=== PATIENT | female | born 1980 | race Caucasian/White ===

== ENCOUNTER 2017-04-17 06:46 | Inpatient (IN) | payer BC ==
[2017-04-17] MEDS ORDERED: Lidocaine 1% (PF) 30 ML VIAL SC PRN (07:28)
[2017-04-17] MEDS ORDERED: Diphenoxylate HCl/Atropine Tablet PO PRN (07:28)
[2017-04-17] MEDS ORDERED: LR / Pitocin 40 units/1000 ml 1,000 ML IV PRN (07:28)
[2017-04-17] MEDS ORDERED: HYDROcodone/Acetaminophen 5/325 mg Tablet PO PRN ×4 (07:28→14:20)
[2017-04-17] MEDS ORDERED: LR 500 ML/Oxytocin 10 units 500 ML IV SCH (07:28)
[2017-04-17] MEDS ORDERED: Carboprost 250 MCG/ML AMP IM PRN (07:28)
[2017-04-17] MEDS ORDERED: Promethazine HCl 25 MG/ML VIAL IM PRN ×2 (07:28→12:02)
[2017-04-17] MEDS ORDERED: Ondansetron HCl/PF 4 MG/2 ML Vial IVP PRN ×3 (07:28→14:20)
[2017-04-17] MEDS: Lactated Ringer's 1,000 ML IV SCH ×4 (07:40→15:53)
[2017-04-17 08:00] LABS: Hematocrit 31.7 % (36.0-47.0); Mean Platelet Volume 7.6 fL (7.4-10.4); Red Blood Cell (RBC) Count 3.52 mill/uL (4.20-5.40); White Blood Cell (WBC) Count 11.3 thou/uL (4.8-10.8)
[2017-04-17 08:06] VITALS: BMI 32.8
[2017-04-17] MEDS ORDERED: Fentanyl 4 mcg/Marc 0.1% Cadd 100 ML ONE (11:11)
[2017-04-17] MEDS ORDERED: Acetaminophen 325 MG TAB PO PRN (12:02)
[2017-04-17] MEDS ORDERED: Lactated Ringer's 500 ML IV PRN (12:02)
[2017-04-17] MEDS ORDERED: diphenhydrAMINE HCl 50 MG/ML 1 ML VIAL IVP PRN (12:02)
[2017-04-17] MEDS ORDERED: Eucerin (Mineral Oil/Petrolatum,White) 30 gm Jar TOP PRN (12:02)
[2017-04-17] MEDS ORDERED: ePHEDrine/0.9% NaCl/PF SYRINGE 50 mg/10 ml SLOW IVP PRN (12:02)
[2017-04-17] MEDS ORDERED: Naloxone HCl 0.4 mg/ml Vial IVP PRN ×2 (12:02)
[2017-04-17] MEDS ORDERED: Communication Order-Pharmacy FS SCH (12:15)
[2017-04-17] MEDS ORDERED: Fentanyl 4mcg/Marcaine 0.1% Cassette 100 ML EPIDURAL SCH (12:15)
[2017-04-17] MEDS ORDERED: Measles/Mumps/Rubella 10 MCG/0.5 ML VIAL SC ONE (14:20)
[2017-04-17] MEDS ORDERED: Zolpidem Tartrate 5 MG TAB PO PRN (14:20)
[2017-04-17] MEDS ORDERED: Bisacodyl 10 MG SUPP PR PRN (14:20)
[2017-04-17] MEDS ORDERED: Milk Of Magnesia 30 ML UDCUP PO PRN (14:20)
[2017-04-17] MEDS ORDERED: diphenhydrAMINE HCl 25 MG CAP PO PRN (14:20)
[2017-04-17] MEDS ORDERED: Preparation H Ointment 28 GM TUBE PR PRN (14:20)
[2017-04-17] MEDS ORDERED: Ibuprofen 800 MG TAB PO SCH (14:20)
[2017-04-17] MEDS ORDERED: Varicella virus, LIVE 0.5 ML VIAL SC ONE (14:20)
[2017-04-17] MEDS ORDERED: Adacel (T-DAP) 0.5 ML VIAL IM ONE (14:20)
[2017-04-17] MEDS ORDERED: Benzocaine/Menthol 20-0.5% 60 ML CAN TOP PRN (14:20)
[2017-04-17] MEDS ORDERED: LR / Pitocin 40 units/1000 ml 1,000 ML IV SCH (14:20)
[2017-04-17] MEDS: Ibuprofen 800 MG TAB PO SCH (17:19)
[2017-04-17] MEDS: Ferrous Sulfate 325 MG TAB PO SCH (17:19)
[2017-04-17] MEDS: Docusate (Surfak) 240 MG CAP PO SCH (20:16)
[2017-04-17] MEDS ORDERED: FLU VACC QS2017-18 36 mo. & older 0.5 ML SYRINGE IM ONE (21:00)
[2017-04-18] MEDS: Ibuprofen 800 MG TAB PO SCH ×3 (00:23→15:06)
[2017-04-18] MEDS: Ferrous Sulfate 325 MG TAB PO SCH (08:35)
[2017-04-18] MEDS: Docusate (Surfak) 240 MG CAP PO SCH (08:36)
[2017-04-18] MEDS ORDERED: Prenatal Vitamin 1 TAB PO SCH (09:00)
--- NOTE | 2017-04-18 12:34 | PDOC.PP ---
Post Progress Note Post Day #: 1 PO intake tolerated: yes Flatus: yes Ambulation: yes Vital Signs (12 hours) Temp Pulse Resp BP 04/18/17 08:54 98.3 F 65 18 113/56 L 04/18/17 08:00 98.3 F 65 18 04/18/17 04:00 98.4 F 65 20 102/52 L Weight Weight 210 lb - Physical Examination General: NAD Cardiovascular: no m/r/g, RRR Respiratory: clear to ausculation bilateral Abdominal: + bowel sounds, lochia, no distention, appropriately TTP Extremities: negative homans (B) Skin: no rash Neurological: no gross focal deficits Psychiatric: normal affect Result Diagrams: 04/17/17 07:40 Additional Labs: Post Labs Hep Bs Antigen Non-Reactive S/CO (NonReactive) 04/17/17 07:40 (1) First stage of labor Code(s): FCC6528 - Status: Acute - Assessment/Plan doing well desires ppd 1 dc
[2017-04-18 12:53] VITALS: BP 132/71; TEMP 98.6
[2017-04-18] MEDS ORDERED: Bupivacaine 0.25% HCL 30 ML VIAL ONE (14:44)
== END 2017-04-18 17:10 | disposition home or self-care (01) | DRG 775 ==
LOC: L&D 06:46 → 3SW 14:59 → EDSTATUS 04-18 14:30
PROVIDERS: ADMIT Obstetrics & Gynecology; ATTEND Obstetrics & Gynecology
PROC: 10E0XZZ Delivery of Products of Conception, External Approach (ICD-10-PCS; principal; 2017-04-17)
DX: O70.0 First degree perineal laceration during delivery (principal); E03.9 Hypothyroidism, unspecified; Z37.0 Single live birth; Z3A.39 39 weeks gestation of pregnancy; O99.284 Endocrine, nutritional and metabolic diseases complicating childbirth
CPT/HCPCS: 85027; 86780; 87340; J7120; S0020

== ENCOUNTER 2018-10-20 05:30 | Inpatient (IN) | payer OTHER ==
--- NOTE | 2018-10-19 15:55 | PDOC.LDHP ---
Labor and Delivery H&P Chief complaint: scheduled induction HPI: a1 with a2 dm on glyburide for iol at 38 wk per consensus reccomendations. no evidence of macrosomia in excess of prior proven pelvis with lga Current gestational age (weeks): 38 Due date: 10/30/18 Grav: 4 Para: 2 OB History Details: see hpi Current complications: gestational diabetes Abnormal US findings: No Current medications: pre-rose marie vitamins, other (glyvuride) Previous surgical history: other Allergies/Adverse Reactions: Allergies Allergy/AdvReac Type Severity Reaction Status Date / Time No Known Allergies Allergy Verified 04/17/17 08:38 Social history: none - Physical Exam Vital signs reviewed and normal: yes General: NAD, resting Heart: RRR Lungs: nonlabored breathing Abdomen: gravid Extremeties: no edema FHT: category 1 [place] contractions every: irreg - Vaginal Exam cm dilated: 2 (efw 8.5-9.5#) Effacement: 50% Station: -2 - OB Labs Blood type: O RH: positive Antibody Screen: negative HIV: negative RPR: negative HEPSAg: negative 1 hour GCT: positive GBS: negative Urine drug screen: not done Rubella: immune - Assessment L&D Assessment: medically indicated induction 38 wk gdm on meds with hx lga/macrosomia with no shoulder dystocia - Plan Plan: admit to L&D, labor augmentation if indicated, anesthesia consult for pain management
[2018-10-20 07:32] VITALS: BMI 34.2
[2018-10-20] MEDS ORDERED: Butorphanol Tartrate 1 MG/ML VIAL SLOW IVP PRN (07:34)
[2018-10-20] MEDS ORDERED: HYDROcodone/Acetaminophen 5/325 mg Tablet PO PRN ×4 (07:34→18:14)
[2018-10-20] MEDS ORDERED: Lidocaine 1% (PF) 30 ML VIAL SC PRN (07:34)
[2018-10-20] MEDS ORDERED: Promethazine HCl 25 MG/ML VIAL IM PRN ×3 (07:34→18:14)
[2018-10-20] MEDS ORDERED: NS w/ Oxytocin 10 units 500 ML IV SCH (07:34)
[2018-10-20] MEDS ORDERED: Lactated Ringer's 1,000 ML IV SCH (07:34)
[2018-10-20] MEDS ORDERED: NS / Oxytocin 40 units/1000ml 1,000 ML IV PRN (07:34)
[2018-10-20] MEDS ORDERED: Ibuprofen 800 MG TAB PO PRN (07:34)
[2018-10-20] MEDS ORDERED: Ondansetron PF 4 MG/2 ML Vial IVP PRN ×3 (07:34→18:14)
[2018-10-20 08:06] LABS: Hemoglobin 11.1 g/dL (12.0-16.0); Mean Corpuscular HGB CONC 34.2 g/dL (32.0-36.0); Mean Corpuscular Hemoglobin 30.1 pg (27.0-31.0); Mean Platelet Volume 8.3 fL (7.4-10.4); Platelet Count 182 thou/uL (130-400); RBC Distribution Width 11.8 % (11.5-14.5); White Blood Cell (WBC) Count 9.2 thou/uL (4.8-10.8)
[2018-10-20 08:33] LABS: HBSAg Index 0.26 S/CO (0-0.99); Hep B Surf Ag Non-Reactive S/CO (NonReactive)
[2018-10-20] MEDS: Lactated Ringer's 1,000 ML IV SCH ×2 (08:41→12:51)
[2018-10-20 09:05] LABS: Syphilis Antibody Nonreactive (Nonreactive); Syphilis Antibody Index 0.04 S/CO (<1.00 Non-Reactive)
[2018-10-20] MEDS ORDERED: Fentanyl 4 mcg/Bup 0.1% Cadd 100 ML ONE (12:25)
[2018-10-20] MEDS ORDERED: Eucerin (Mineral Oil/Petrolatum,White) 30 gm Jar TOP PRN (12:52)
[2018-10-20] MEDS ORDERED: diphenhydrAMINE 50 MG/ML VIAL IVP PRN (12:52)
[2018-10-20] MEDS ORDERED: Acetaminophen 325 MG TAB PO PRN (12:52)
[2018-10-20] MEDS ORDERED: Lactated Ringer's 500 ML IV PRN (12:52)
[2018-10-20] MEDS ORDERED: Naloxone HCl 0.4 mg/ml Vial IVP PRN ×2 (12:52)
[2018-10-20] MEDS ORDERED: ePHEDrine/0.9% NaCl/PF SYRINGE 50 mg/10 ml SLOW IVP PRN (12:52)
[2018-10-20] MEDS ORDERED: Fentanyl 4 mcg/Bupivacaine 0.1% Cassette 100 ML EPIDURAL SCH (13:00)
[2018-10-20] MEDS ORDERED: Communication Order-Pharmacy FS SCH (13:00)
--- NOTE | 2018-10-20 15:45 | PDOC.OPDEL ---
OB Operative/Delivery Note Delivery Dr/Surgeon: adrian Pre-Delivery Diagnosis: medically indicated induction Procedure/Post Delivery Dx: spontaneous vaginal delivery Weeks gestation: 38 Anesthesia: epidural - Findings A Weight: 0 oz (pend) - 1 min: 9 - 5 min: 9 - Additional Findings/Plan Placenta delivered: spontaneous Repaired Obstetrical Laceration: 1st degree Estimated blood loss: 256 qbl Post delivery plan: routine recovery
[2018-10-20] MEDS ORDERED: Bupivacaine 0.25% HCL 30 ML VIAL ONE (17:32)
[2018-10-20] MEDS ORDERED: NS / Oxytocin 40 units/1000ml 1,000 ML IV SCH (18:14)
[2018-10-20] MEDS ORDERED: Zolpidem Tartrate 5 MG TAB PO PRN (18:14)
[2018-10-20] MEDS ORDERED: Lanolin Ointment 7 GM TUBE TOP PRN (18:14)
[2018-10-20] MEDS ORDERED: diphenhydrAMINE 25 MG CAP PO PRN (18:14)
[2018-10-20] MEDS ORDERED: Benzocaine-Menthol 82.5 ML CAN TOP PRN (18:14)
[2018-10-20] MEDS ORDERED: Bisacodyl 10 MG SUPP PR PRN (18:14)
[2018-10-20] MEDS ORDERED: Preparation H Ointment 28 GM TUBE PR PRN (18:14)
[2018-10-20] MEDS ORDERED: Milk Of Magnesia 30 ML UDCUP PO PRN (18:14)
[2018-10-20] MEDS ORDERED: Adacel (T-DAP) 0.5 ML SYRINGE IM ONE (21:00)
[2018-10-20] MEDS: Docusate Calcium (SURFAK) 240 MG CAP PO SCH (21:03)
[2018-10-20] MEDS: Ibuprofen 800 MG TAB PO SCH (21:03)
[2018-10-21] MEDS: Ibuprofen 800 MG TAB PO SCH ×3 (05:36→21:35)
[2018-10-21] MEDS: Prenatal Vitamin 1 TAB PO SCH (08:34)
[2018-10-21] MEDS: Docusate Calcium (SURFAK) 240 MG CAP PO SCH ×2 (08:34→21:35)
--- NOTE | 2018-10-21 12:29 | PDOC.PP ---
Post Progress Note Post Day #: 1 Subjective: Pt evaluated PPD1. PT doing well. She is up and ambulating. Urinating without difficulty. Minimal lochia. Baby is breast feeding and no problems with latch. PO intake tolerated: yes Ambulation: yes Vital Signs (12 hours) Temp Pulse Resp BP Pulse Ox 10/21/18 11:12 98.0 F 76 20 123/67 10/21/18 08:06 97.6 F 66 20 109/75 99 10/21/18 05:20 97.7 F 66 16 110/67 Weight Weight 212 lb - Physical Examination General: NAD Respiratory: non-labored breathing Abdominal: lochia, no distention, appropriately TTP Fundus firm & at: below the umbilicus Extremities: negative homans (B) Neurological: no gross focal deficits Psychiatric: normal affect Result Diagrams: 10/20/18 07:49 Additional Labs: Post Labs Blood Type O POSITIVE 10/20/18 07:49 Hep Bs Antigen Non-Reactive S/CO (NonReactive) 10/20/18 07:49 (1) (spontaneous vaginal delivery) Code(s): O80 - ENCOUNTER FOR FULL-TERM UNCOMPLICATED DELIVERY Status: Acute - Assessment/Plan PT s/p . PT doing well on PPD1 We will plan to d/c tomorrow am.
[2018-10-22] MEDS: Ibuprofen 800 MG TAB PO SCH (05:58)
[2018-10-22 07:52] VITALS: BP 117/69; TEMP 98
--- NOTE | 2018-10-22 08:03 | PDOC.PP ---
Post Progress Note Post Day #: 2 Subjective: Pt evaluated PPD2. PT doind well. She is breast feeding at this time. 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 No gushing or dizziness. She is up and ambulatory with mild soreness. She is eating and drinking well. Urinating without difficulty. No leg swelling or pain. PT is ready for discharge. PO intake tolerated: yes Flatus: yes Ambulation: yes Vital Signs (12 hours) Temp Pulse Resp BP Pulse Ox 10/22/18 07:52 98.0 F 76 20 117/69 97 10/21/18 20:12 97.9 F 75 18 117/73 99 Weight Weight 212 lb - Physical Examination General: NAD Respiratory: clear to auscultation bilaterally Abdominal: no distention, appropriately TTP Fundus firm & at: 2 fingers below umbilicus Extremities: negative homans (B) Psychiatric: A&Ox3, normal affect Result Diagrams: 10/20/18 07:49 Additional Labs: Post Labs Blood Type O POSITIVE 10/20/18 07:49 Hep Bs Antigen Non-Reactive S/CO (NonReactive) 10/20/18 07:49 (1) (spontaneous vaginal delivery) Code(s): O80 - ENCOUNTER FOR FULL-TERM UNCOMPLICATED DELIVERY Status: Acute - Assessment/Plan PT doing very well PPD2. Plan to d/c this am when baby is discharged. She will follow up in clinic in 6 weeks
[2018-10-22] MEDS: Prenatal Vitamin 1 TAB PO SCH (09:24)
[2018-10-22] MEDS: Docusate Calcium (SURFAK) 240 MG CAP PO SCH (09:24)
== END 2018-10-22 12:15 | disposition home or self-care (01) | DRG 807 ==
LOC: L&D 06:41 → 3SW 18:14
PROVIDERS: ADMIT Obstetrics & Gynecology; ATTEND Obstetrics & Gynecology
PROC: 10E0XZZ Delivery of Products of Conception, External Approach (ICD-10-PCS; principal; 2018-10-20)
PROC: 0HQ9XZZ Repair Perineum Skin, External Approach (ICD-10-PCS; 2018-10-20)
DX: O24.424 Gestational diabetes mellitus in childbirth, insulin controlled (principal); Z37.0 Single live birth; O36.63X0 Maternal care for excessive fetal growth, third trimester, not applicable or unspecified; O70.0 First degree perineal laceration during delivery; Z3A.38 38 weeks gestation of pregnancy
CPT/HCPCS: 36415; 36416; 51702; 85027; 86780; 86850; 86900; 86901; 87340; J2590; S0020

== ENCOUNTER 2021-07-11 09:32 | Outpatient (CLI) | payer OTHER | END 2021-07-11 09:33 | disposition home or self-care (01) | LOC: BICMRI 09:32 | PROVIDERS: ATTEND Internal Medicine | DX: Z80.3 Family history of malignant neoplasm of breast (principal); Z98.82 Breast implant status | CPT/HCPCS: A9577; C8908 ==